=== PATIENT | male | born 1940 | race Caucasian/White ===

== ENCOUNTER 2018-01-02 08:45 | Inpatient (IN) ==
[2018-01-03 13:19] LABS: Basophils # 0.1 10*3/uL (0.0-0.2); Eosinophils # 0.2 10*3/uL (0.0-0.87); Eosinophils % 2.7 % (0.00-10.9); Hematocrit 35.5 VOL% (42.0-52.0); Immature Granulocytes % 0.4 %; Immature Granulocytes Absolute 0.03 #; Lymphocytes # 1.8 10*3/uL (1.4-4.0); Mean Corpuscular HGB Conc 33.8 GM/DL (32-36); Mean Corpuscular Hemoglobin 31 PG (27-34); Mean Corpuscular Volume 90.3 FL (87-102); Mean Platelet Volume 10.8 FL (9.6-12.0); Monocytes # 0.6 10*3/uL (0.11-0.8); Monocytes % 8.4 % (1.7-12.7); Neutrophils # 4.5 10*3/uL (1.4-7.4); Neutrophils % 62.5 % (38.7-73.9); Platelet Count 196 T/CUMM (130-400); Red Blood Count 3.93 MC/CUMM (3.8-5.5); Red Cell Distribution Width 12.4 % (9.3-17.3); White Blood Count 7.1 T/CUMM (4-12)
[2018-01-03 13:51] LABS: Albumin 3.5 G/DL (3.4-5.0); Bilirubin,Total 0.6 MG/DL (0.2-1.0); Calcium 9.1 MG/DL (8.5-10.1); Potassium 4.2 MMOL/L (3.5-5.1); Total Protein 7.1 G/DL (6.4-8.3)
[2018-01-09] MEDS ORDERED: ceFAZolin 1,000 MG in SYRINGE 1 EACH IV ONE (06:30)
[2018-01-09] MEDS ORDERED: ceFAZolin 1,000 MG VIAL ONE (07:30)
[2018-01-09] MEDS ORDERED: FAMOTIDINE 20 MG TABLET PO ONE (08:28)
[2018-01-09] MEDS ORDERED: DIAZEPAM 5 MG TABLET PO ONE (08:28)
[2018-01-09] MEDS ORDERED: HEPARIN/NACL 0.9% 2 UNITS/ML 0 ML IV ONE (08:44)
[2018-01-09] MEDS ORDERED: FAMOTIDINE 20 MG TABLET ONE (09:04)
[2018-01-09] MEDS ORDERED: DIAZEPAM 5 MG TABLET ONE (09:04)
[2018-01-09] MEDS ORDERED: LACTATED RINGERS 1,000 ML IV SCH (09:30)
[2018-01-09] MEDS ORDERED: HEPARIN/NACL 0.9% 2 UNITS/ML 500 ML IV ONE (09:39)
[2018-01-09] MEDS ORDERED: LIDOCAINE 1% 20 ML VIAL ONE (09:53)
[2018-01-09] MEDS ORDERED: HEPARIN 5,000 UNIT/1 ML VIAL ONE (09:53)
[2018-01-09] MEDS ORDERED: PHENYLEPHRINE DRIP 20 MG/250 ML PREMIX IV ONE (10:13)
[2018-01-09] MEDS ORDERED: NITROGLYCERIN DRIP 50 MG/250 ML BOTTLE IV ONE (10:13)
[2018-01-09] MEDS ORDERED: GLUCAGON 1 MG VIAL IM PRN (11:56)
[2018-01-09] MEDS ORDERED: oxyCODONE/ACETAMINOPHEN 5-325 MG TABLET PO PRN ×2 (11:56)
[2018-01-09] MEDS ORDERED: DEXTROSE 50% 25 GM/50 ML VIAL IV PRN (11:56)
[2018-01-09] MEDS ORDERED: NALOXONE 0.4 MG/ML VIAL IV PRN (11:56)
[2018-01-09] MEDS ORDERED: HYDROmorphone 2 MG/1 ML VIAL IV PRN (11:56)
[2018-01-09] MEDS ORDERED: PHENYLEPHRINE DRIP 40 MG/250 ML PREMIX IV SCH (12:00)
[2018-01-09] MEDS ORDERED: NITROPRUSSIDE 100 MG in DEXTROSE 5% 250 ML IV SCH (12:00)
[2018-01-09] MEDS ORDERED: ASPIRIN EC 81 MG TABLET PO SCH (12:00)
[2018-01-09] MEDS ORDERED: SEVOFLURANE 1 UNIT/15 MINUTE INH ONE (12:19)
[2018-01-09] MEDS ORDERED: PROPOFOL 200 MG/20 ML VIAL IV ONE (12:19)
[2018-01-09] MEDS ORDERED: fentaNYL 100 MCG/2 ML VIAL ONE (12:19)
[2018-01-09] MEDS ORDERED: ETOMIDATE 40 MG/20 ML VIAL IV ONE (12:19)
[2018-01-09] MEDS: HYDROmorphone 2 MG/1 ML VIAL IV PRN ×5 (12:20→17:16)
[2018-01-09] MEDS ORDERED: NEOSTIGMINE 10 MG/10 ML VIAL ONE (12:20)
[2018-01-09] MEDS ORDERED: GLYCOPYRROLATE 0.4 MG/2 ML VIAL ONE (12:20)
[2018-01-09] MEDS ORDERED: SODIUM CHLORIDE 0.9% 1,000 ML IV ONE (12:20)
[2018-01-09] MEDS ORDERED: ROCURONIUM 100 MG/10 ML VIAL IV ONE (12:20)
[2018-01-09] MEDS ORDERED: PHENYLEPHRINE 1 MG/10 ML SYRINGE IV ONE (12:20)
[2018-01-09] MEDS ORDERED: PROTAMINE SULFATE 50 MG/5 ML VIAL IV ONE (12:21)
[2018-01-09] MEDS ORDERED: HEPARIN 10,000 UNIT/10 ML VIAL ONE (12:21)
[2018-01-09] MEDS: LACTATED RINGERS 1,000 ML IV SCH ×3 (13:12→23:48)
[2018-01-09] MEDS: ONDANSETRON 4 MG/2 ML VIAL IV PRN ×2 (13:16→17:16)
[2018-01-09] MEDS: CLOPIDOGREL 75 MG TABLET PO SCH (13:16)
[2018-01-09] MEDS: DUTASTERIDE 0.5 MG CAPSULE PO SCH (20:22)
[2018-01-09] MEDS: DOXAZOSIN 4 MG TABLET PO SCH (20:22)
[2018-01-09] MEDS: AMITRIPTYLINE 25 MG TABLET PO SCH (20:22)
[2018-01-09] MEDS: ATORVASTATIN 20 MG TABLET PO SCH (20:22)
[2018-01-09] MEDS: PROMETHAZINE 25 MG/1 ML VIAL IM PRN (20:23)
[2018-01-10] MEDS: HYDROmorphone 2 MG/1 ML VIAL IV PRN (01:04)
[2018-01-10] MEDS: PROMETHAZINE 25 MG/1 ML VIAL IM PRN (01:04)
[2018-01-10] MEDS: LEVOTHYROXINE 125 MCG TABLET PO SCH (06:19)
[2018-01-10] MEDS ORDERED: LISINOPRIL 5 MG TABLET PO SCH (09:00)
[2018-01-10] MEDS: INSULIN NPH/REGULAR 70/30 100 UNIT/ML SUBCUT SCH ×2 (09:16→21:28)
[2018-01-10] MEDS: ASPIRIN EC 81 MG TABLET PO SCH (09:16)
[2018-01-10] MEDS: CLOPIDOGREL 75 MG TABLET PO SCH (09:17)
[2018-01-10] MEDS: PANTOPRAZOLE 40 MG TABLET PO SCH (09:17)
[2018-01-10] MEDS: LACTATED RINGERS 1,000 ML IV SCH (10:35)
[2018-01-10] MEDS: DUTASTERIDE 0.5 MG CAPSULE PO SCH ×2 (21:26→21:41)
[2018-01-10] MEDS: AMITRIPTYLINE 25 MG TABLET PO SCH (21:26)
[2018-01-10] MEDS: ATORVASTATIN 20 MG TABLET PO SCH (21:26)
[2018-01-10] MEDS: DOXAZOSIN 4 MG TABLET PO SCH (21:26)
[2018-01-11] MEDS: LEVOTHYROXINE 125 MCG TABLET PO SCH (06:18)
[2018-01-11] MEDS ORDERED: LISINOPRIL 10 MG TABLET PO SCH (09:00)
[2018-01-11] MEDS: CLOPIDOGREL 75 MG TABLET PO SCH (09:34)
[2018-01-11] MEDS: ASPIRIN EC 81 MG TABLET PO SCH (09:34)
[2018-01-11] MEDS: INSULIN NPH/REGULAR 70/30 100 UNIT/ML SUBCUT SCH (09:34)
[2018-01-11] MEDS: PANTOPRAZOLE 40 MG TABLET PO SCH (09:34)
[2018-01-11 11:53] VITALS: BP 103/53
== END 2018-01-11 14:30 | disposition home or self-care (01) | DRG 39 ==
LOC: N.SDSINP 01-09 06:41 → N.ICU 01-09 12:53 → N.3E 01-10 14:37
PROVIDERS: ADMIT Surgery; ATTEND Surgery